=== PATIENT | male | born 1985 | race Hispanic/Latino ===

== ENCOUNTER 2017-02-04 10:57 | Outpatient (CLI) | payer MEDICARE, MEDICAID ==
[2017-02-04 11:31] LABS: #Eosinphils 0.2 thou/uL (0.0-0.7); #Lymphocytes 1.7 thou/uL (1.20-3.40); #Monocytes 0.5 thou/uL (0.11-0.59); #Neutrophils 3.3 thou/uL (1.40-6.50); %Basophils 0.8 % (0.0-1.0); %Eosinophils 2.9 % (0.0-10.0); %Monocytes 8.8 % (0.0-10.0); Hematocrit 49.4 % (42.0-52.0); Mean Platelet Volume 6.6 fL (7.4-10.4); White Blood Cell (WBC) Count 5.7 thou/uL (4.8-10.8)
[2017-02-04 11:38] LABS: ALT (SGPT) 16 U/L (0-55); AST (SGOT) 17 U/L (5-34); Alkaline Phosphatase 80 U/L (40-150); Anion Gap 13 mmol/L (10-20); BUN (Urea Nitrogen) 11 mg/dL (8.9-20.6); Bilirubin, Total 0.6 mg/dL (0.2-1.2); Calc. Creatinine Clearance 0 mL/min (70-130); Calcium 10.1 mg/dL (7.8-10.44); Carbon Dioxide 26 mmol/L (22-29); Chloride 107 mmol/L (98-107); Estimated GFR-MDRD Greater than 90; Globulin 3.2 g/dL (2.4-3.5); Protein, Total 7.8 g/dL (6.0-8.3)
== END 2017-02-04 10:58 | disposition home or self-care (01) ==
LOC: HPCALD 10:57
PROVIDERS: ATTEND Family Medicine
DX: G40.909 Epilepsy, unspecified, not intractable, without status epilepticus (principal); K59.09 Other constipation
CPT/HCPCS: 36415; 80053; 80164; 80177; 84443; 85025

== ENCOUNTER 2017-05-17 10:40 | Outpatient (CLI) | payer MEDICARE, MEDICAID ==
--- NOTE | 2017-05-17 18:30 | RAD ---
ABDOMEN ONE VIEW 05/17/2017 FINDINGS: The abundance of gas and fecal material in this patient's abdomen is such that renal calculi are vir tually impossible to see well. There is a 7 mm calcification in the vicinity of the right kidney th at is probably a calculus, judging by a prior CT scan done in 2016. PSYCHOLOGY FELLOW shunt tubing is seen in the a bdomen. 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 This entire proximal femur is deformed. There is no sign of bowel obstruct ion. A moderate amount of fecal material is seen in the colon. IMPRESSION: 7 mm right renal calculus. The gas and feces present obscures smaller calcifications. POS: HOME
== END 2017-05-17 10:41 | disposition home or self-care (01) ==
LOC: BURRAD 10:40
PROVIDERS: ATTEND Family Medicine
DX: N20.0 Calculus of kidney (principal)
CPT/HCPCS: 74000

== ENCOUNTER 2017-07-02 09:45 | Outpatient (CLI) | payer MEDICARE, MEDICAID ==
[2017-07-02 10:14] LABS: Bilirubin Negative (Negative); Blood, Urine Small (Negative); Clarity Clear (Clear); Glucose, Urine (Dipstick) Negative (Negative); Leukocyte Negative (Negative); Nitrite Negative (Negative); Protein, Urine (Dipstick) Negative (Neg-Trace)
[2017-07-02 10:31] LABS: Bacteria/HPF None Seen HPF (None Seen); Crystals/HPF 1+ AMORPH PHOS HPF (Negative); Squamous Epithelial 0-3 HPF (0-3); WBC/HPF 0-3 HPF (0-3)
== END 2017-07-02 09:46 | disposition home or self-care (01) ==
LOC: HPCALD 09:45
PROVIDERS: ATTEND Family Medicine
DX: R82.90 Unspecified abnormal findings in urine (principal)
CPT/HCPCS: 81001

== ENCOUNTER 2017-07-09 14:00 | Outpatient (CLI) | payer MEDICARE, MEDICAID ==
--- NOTE | 2017-07-09 15:38 | CT ---
CT HEAD WITHOUT CONTRAST: Multiple axial tomograms obtained through the head without IV enhancement. HISTORY: Hydrocephalus. Assess shunt. COMPARISON: Comparison is made to a head CT dated 09/25/14. FINDINGS: A right ventricular shunt enters via the right parietal lobe. The tip of the shunt appears to exten d through the ventricle and abuts the falx. The position of this tube has not changed when compared to prior exam in 2014. The right ventricle is decompressed and unchanged in size. The left ventricle is mildly prominent, especially the anterior horn. There is a left ventricular c atheter which enters via the left frontal lobe anteriorly with tip passing through the anterior horn and into the basal ganglia. The position of this catheter has not changed when compared to 2014. The size of the mildly dilated anterior horn has not significantly changed when compared to 2014. T hird and fourth ventricles are not significantly dilated. There is no acute hemorrhage, mass, or infarct identified. The paranasal sinuses and mastoid air ce lls are well aerated. The left frontal lobe ventricular catheter extends in the subcutaneous tissues anteriorly and latera lly to the right and joins the reservoir in the subcutaneous tissues over the right mastoid. The le ft ventricular catheter reservoir is at the craniotomy site with no catheter extending from this res ervoir. The visualized catheters are patent. There is mild kinking of the left frontal lobe cathet er at its entrance into the calvarium. However, this is a stable finding when compared to the prior exam of 2014. IMPRESSION: Overall stable findings when compared to exam of 2014. The size of the ventricles has not significa ntly changed since that study. The ventricular catheters are unchanged in position as described abo skye. POS: ALBERTO
== END 2017-07-09 14:01 | disposition home or self-care (01) ==
LOC: BURCT 14:00
PROVIDERS: ATTEND Neurological Surgery
DX: G91.9 Hydrocephalus, unspecified (principal)
CPT/HCPCS: 70450

== ENCOUNTER 2017-08-30 18:43 | Emergency (ER) | payer MEDICARE, MEDICAID ==
--- NOTE | 2017-08-30 19:51 | CT ---
CT OF THE BRAIN WITHOUT CONTRAST 08/30/2017 A non-contrast CT was done for onset of seizures in this patient with known hydrocephalus. Comparis on is made with the 07/09/[address] [facility]. Shunt tubes are present bilaterally and have not changed in position. The lateral ventricle on the left is larger than the right but has not changed in size over time. No intracranial bleeding, obvi ous stroke, or other acute change since the prior study was demonstrated. The calvarium shows no ac wilmer change. IMPRESSION: Chronic changes with hydrocephalus and shunt tubing. No change in the appearance of the brain since the prior exam. POS: HOME
== END 2017-08-30 20:25 | disposition home or self-care (01) ==
LOC: BURERS 18:43
DX: R56.9 Unspecified convulsions (principal); Z79.899 Other long term (current) drug therapy
CPT/HCPCS: 70450

== ENCOUNTER 2017-11-25 13:04 | Outpatient (CLI) | payer MEDICARE, MEDICAID ==
--- NOTE | 2017-11-25 14:22 | RAD ---
ABDOMEN ONE VIEW: History: Abdominal pain. Kidney stones. Comparison: 05-17-17 FINDINGS: There is extensive motion. Patient was unable to cooperate for imaging. Motion degrades detail. Visualized bowel gas pattern is nonspecific. Catheters and drains overlying the abdomen are similar i n appearance to the prior study. The 0.7 cm calculus projecting over the right renal hilum on the previous study is favored to be stab le. Smaller calcifications projecting over the left renal shadow are now better demonstrated. Dysphas ia of the left hip is partially visualized. IMPRESSION: 1. Bilateral renal stones are favored to be stable. POS: ZEENAT
== END 2017-11-25 13:05 | disposition home or self-care (01) ==
LOC: BURRAD 13:04
PROVIDERS: ATTEND Family Medicine
DX: N20.0 Calculus of kidney (principal)
CPT/HCPCS: 74000

== ENCOUNTER 2017-12-07 10:57 | Outpatient (CLI) | payer MEDICARE, MEDICAID ==
--- NOTE | 2017-12-07 13:06 | RAD ---
CHEST ONE VIEW: ABDOMEN TWO VIEWS: HISTORY: Abdominal pain. Renal stones. COMPARISON: 11/25/2017 FINDINGS: The cardiac silhouette is unremarkable. Shallow inspiration accentuates pulmonary markings. There i s no lobar consolidation or evidence of free subdiaphragmatic gas. Radiopaque tubing overlying the r ight mediastinum and abdomen has the appearance of a ventriculoperitoneal shunt. A large amount of stool is apparent throughout the colon. No differential air-fluid level or free in traperitoneal gas is apparent. Calcification overlying the right renal shadow is similar in appearan ce to the previous exams. Radiopaque tubes over the upper abdomen and right lower quadrant are again demonstrated. Chronic appearing dislocation and deformity of the left hip is stable. IMPRESSION: 1. Constipation. 2. Right renal calculus appears stable. 3. Other chronic type findings are stable. POS: ALBERTO
== END 2017-12-07 10:58 | disposition home or self-care (01) ==
LOC: BURRAD 10:57
PROVIDERS: ATTEND Family Medicine
DX: K59.01 Slow transit constipation (principal); N20.0 Calculus of kidney
CPT/HCPCS: 74022

== ENCOUNTER 2018-09-22 14:43 | Emergency (ER) | payer MEDICARE, MEDICAID ==
[2018-09-22 15:23] LABS: #Eosinphils 0.1 thou/uL (0.0-0.7); #Lymphocytes 1.2 thou/uL (1.20-3.40); #Monocytes 0.5 thou/uL (0.11-0.59); #Neutrophils 4.1 thou/uL (1.40-6.50); %Basophils 0.7 % (0.0-1.0); %Eosinophils 1.7 % (0.0-10.0); %Lymphocytes 20.8 % (21.0-51.0); %Monocytes 7.9 % (0.0-10.0); %Neutrophils 68.9 % (42.0-75.0); Hemoglobin 14.8 g/dL (14.0-18.0); Mean Corpuscular HGB CONC 34.8 g/dL (32.0-36.0); Mean Corpuscular Hemoglobin 28.9 pg (27.0-31.0); Mean Corpuscular Volume 83.1 fL (78.0-98.0); Mean Platelet Volume 6.9 fL (7.4-10.4); Platelet Count 189 thou/uL (130-400); RBC Distribution Width 12.1 % (11.5-14.5); White Blood Cell (WBC) Count 5.9 thou/uL (4.8-10.8)
[2018-09-22 15:40] LABS: ALT (SGPT) 29 U/L (8-55); AST (SGOT) 21 U/L (5-34); Albumin 4.7 g/dL (3.5-5.0); Alkaline Phosphatase 83 U/L (40-150); Anion Gap 16 mmol/L (10-20); BUN (Urea Nitrogen) 9 mg/dL (8.9-20.6); Bilirubin, Total 0.3 mg/dL (0.2-1.2); Calc. Creatinine Clearance 0 mL/min (70-130); Calcium 9.3 mg/dL (7.8-10.44); Carbon Dioxide 21 mmol/L (22-29); Chloride 106 mmol/L (98-107); Estimated GFR-MDRD Greater than 90; Glucose 137 mg/dL (70-105); Potassium 3.7 mmol/L (3.5-5.1); Protein, Total 7.7 g/dL (6.0-8.3); Sodium 139 mmol/L (136-145)
[2018-09-22 15:41] LABS: CKMB 1.8 ng/mL (0-6.6); Troponin I Less than 0.010 ng/mL (< 0.028)
[2018-09-22 16:00] LABS: Clarity Clear (Clear); Leukocyte Negative (Negative); Specific Gravity, Urine 1.025 (1.005-1.030); pH, Urine 6.5 (5.0-9.0)
[2018-09-22 16:01] LABS: Bilirubin Negative (Negative); Blood, Urine Small (Negative); Glucose, Urine (Dipstick) Negative (Negative); Nitrite Negative (Negative); Protein, Urine (Dipstick) Negative (Neg-Trace); Urobilinogen 0.2 mg/dL (0.2-1.0)
[2018-09-22 16:04] LABS: Bacteria/HPF 2+ HPF (None Seen); Squamous Epithelial 0-3 HPF (0-3); WBC/HPF 0-3 HPF (0-3)
--- NOTE | 2018-09-22 18:32 | CT ---
CT OF THE BRAIN WITHOUT CONTRAST: 09/22/18 COMPARISON: Comparison is made with the 08/30/17 study. The patient has bilateral DIGITAL ADVERTISING ANALYST shunts in place. There is dilation of the left lateral ventricle as befo re. Overall, the ventricular sizes have not changed at all in the interval. No intracranial bleeding or sign of acute stroke was found. There is no sign of mass. IMPRESSION: Chronic ventricular changes but no acute intracranial findings. POS: HOME
== END 2018-09-22 16:49 | disposition home or self-care (01) ==
LOC: BURERS 14:43
DX: G40.909 Epilepsy, unspecified, not intractable, without status epilepticus (principal); Z79.899 Other long term (current) drug therapy
CPT/HCPCS: 36415; 51701; 70450; 80053; 81003; 81015; 82553; 83605; 84484; 85025

== ENCOUNTER 2019-03-16 12:42 | Emergency (ER) | payer MEDICARE, MEDICAID ==
[2019-03-16 13:49] LABS: ALT (SGPT) 110 U/L (8-55); AST (SGOT) 47 U/L (5-34); Albumin 4.7 g/dL (3.5-5.0); Alkaline Phosphatase 96 U/L (40-150); Anion Gap 17 mmol/L (10-20); BUN (Urea Nitrogen) 18 mg/dL (8.9-20.6); Bilirubin, Total 0.8 mg/dL (0.2-1.2); Calc. Creatinine Clearance 0 mL/min (70-130); Calcium 9.5 mg/dL (7.8-10.44); Carbon Dioxide 19 mmol/L (22-29); Chloride 107 mmol/L (98-107); Estimated GFR-MDRD 61; Globulin 2.8 g/dL (2.4-3.5); Glucose 105 mg/dL (70-105); Lipase 41 U/L (8-78); Potassium 3.8 mmol/L (3.5-5.1); Protein, Total 7.5 g/dL (6.0-8.3); Sodium 139 mmol/L (136-145)
[2019-03-16 14:17] LABS: Clarity SLIGHTLY (Clear); Leukocyte Small (Negative); Nitrite Negative (Negative); Protein, Urine (Dipstick) 30 mg/dL (Neg-Trace); Specific Gravity, Urine 1.025 (1.005-1.030); pH, Urine 5.5 (5.0-9.0)
[2019-03-16 14:18] LABS: Bilirubin Small (Negative); Blood, Urine Moderate (Negative); Glucose, Urine (Dipstick) Negative (Negative); Urobilinogen 0.2 mg/dL (0.2-1.0)
[2019-03-16 14:19] LABS: WBC/HPF 21-50 HPF (0-3)
[2019-03-16 14:20] LABS: Bacteria/HPF 1+ HPF (None Seen); Crystals/HPF 1+ AMORPH URATES HPF (Negative); Hyaline Casts/LPF NONE SEEN LPF (0-3 Hyaline); Other Casts/LPF None Seen LPF (0-3 Hyaline); Oval Fat Bodies/HPF None Seen HPF (None Seen); Renal Epithelial None Seen HPF (0-3); Sperm/HPF None Seen HPF (None Seen); Squamous Epithelial None Seen HPF (0-3); Trichomonas/HPF None Seen HPF (None Seen); Yeast-All Forms None Seen HPF (None Seen)
[2019-03-16 14:21] LABS: Hemoglobin 14.4 g/dL (14.0-18.0); Mean Corpuscular HGB CONC 32.8 g/dL (32.0-36.0); Mean Corpuscular Hemoglobin 29.5 pg (27.0-31.0); Mean Corpuscular Volume 89.8 fL (78.0-98.0); Mean Platelet Volume 7.3 fL (7.4-10.4); Platelet Count 157 thou/uL (130-400); RBC Distribution Width 12.4 % (11.5-14.5); Red Blood Cell (RBC) Count 4.87 mill/uL (4.70-6.10); White Blood Cell (WBC) Count 12.7 thou/uL (4.8-10.8)
[2019-03-16] MEDS ORDERED: Acetaminophen 325 MG TAB ONE (14:32)
[2019-03-16] MEDS ORDERED: cefTRIAXone\\ROCEPHIN 2 GM VIAL ONE (14:32)
[2019-03-16] MEDS ORDERED: Sodium Chloride 0.9% 100 ML ONE (14:32)
[2019-03-16 14:58] LABS: MDiff Complete? YES
[2019-03-16] MEDS ORDERED: Ibuprofen 200 MG TAB ONE (16:56)
--- NOTE | 2019-03-16 17:50 | RAD ---
PORTABLE CHEST: Date: 03-16-19 Comparison: 12-07-17 FINDINGS: The heart is normal in size and the lungs are clear. Shunt tubing traverses the right hemithorax as u sual. The stomach seems moderately distended with gas. IMPRESSION: 1. No acute thoracic findings. 2. Moderate gastric distension. POS: HOME
== END 2019-03-16 17:10 | disposition short-term general hospital (02) ==
LOC: BURERS 12:42
DX: A41.9 Sepsis, unspecified organism (principal); N39.0 Urinary tract infection, site not specified; R65.20 Severe sepsis without septic shock; Z79.899 Other long term (current) drug therapy
CPT/HCPCS: 36415; 51701; 71045; 80053; 81003; 81015; 83605; 83690; 85025; 87040; 87077; 87086; 87149; 87186; 96365; 96367; J0696; J3370; J3490

== ENCOUNTER 2019-07-12 12:13 | Outpatient (CLI) | payer MEDICARE, MEDICAID ==
--- NOTE | 2019-07-12 13:13 | RAD ---
KUB: 07/12/19 PROVIDED CLINICAL HISTORY: Kidney stones. FINDINGS: Comparison 07/03/19. Right ureteral stent is again noted in similar position. Presumed RIB KNITTER shunt catheter and additional ab dominal catheter of uncertain etiology are redemonstrated. The large right renal calculus described p reviously is not definitely visualized on this study. Left sided nephrolithiasis is redemonstrated. S table calcifications overlying the pelvis shown to represent phleboliths on prior CT. The abdominal b owel gas pattern is nonspecific. Chronic osseous changes are redemonstrated. IMPRESSION: Nonvisualization of the previously described right renal calculus. The examination appears otherwise similar. POS: [facility]
== END 2019-07-12 12:14 | disposition home or self-care (01) ==
LOC: BURRAD 12:13
PROVIDERS: ATTEND Urology
DX: N20.0 Calculus of kidney (principal)
CPT/HCPCS: 74018

== ENCOUNTER 2024-09-01 15:53 | Emergency (ER) | payer MEDICARE, MEDICAID, OTHER | END 2024-09-01 16:54 | disposition home or self-care (01) | LOC: BURERS 15:53 | DX: S00.93XA Contusion of unspecified part of head, initial encounter (principal); W22.8XXA Striking against or struck by other objects, initial encounter | CPT/HCPCS: 70450 ==